=== PATIENT | female | born 1985 | race African-American/Black ===

== ENCOUNTER 2021-09-08 23:16 | Emergency (ER) | payer OTHER, MEDICAID ==
[~2021-09-08] VITALS: Ht 162.6 cm; Wt 139.0 kg
[2021-09-09] MEDS ORDERED: CEPH500C2 MT (01:52)
[2021-09-09] MEDS ORDERED: CEPHALEXIN 250MG CAPSULE PO ONE (02:00)
[2021-09-09 02:53] VITALS: BP 115/88
[2021-09-09] MEDS ORDERED: CEPH500T PO (11:48)
== END 2021-09-09 02:53 | disposition home or self-care (01) ==
LOC: ER 23:16
DX: L03.112 Cellulitis of left axilla (principal); I10 Essential (primary) hypertension; E78.00 Pure hypercholesterolemia, unspecified; F84.0 Autistic disorder; Z88.0 Allergy status to penicillin
CPT/HCPCS: 99281